=== PATIENT | male | born 1955 | race Caucasian/White ===

== ENCOUNTER 2019-01-30 09:46 | Day surgery (SDC) | payer MEDICARE, OTHER ==
[~2019-01-30] VITALS: Wt 115.0 kg
[~2019-01-30 09:46] MED LIST: Aspir 8181 MG PO; Benazepril HCl40 MG PO; Crutch1 EACH MISC; DIGO.125 PO; ENOX30I; FURO20 PO; Metoprolol Tar100 MG PO; Norco 5-325 Ta1 EACH PO; Pravastatin Sod80 MG PO; WARF2 PO
--- NOTE | 2019-01-30 10:05 | NUR ---
Ambulatory in Day Surgery History, Chart, Medications and Allergies reviewed before start of procedure.Patient States Post-Procedure ride home has been arranged.
--- NOTE | 2019-01-30 10:17 | NUR ---
01/30/19 1017 Chad Dallas PATIENT DETERMINED TO BE ASA APPROPRIATE FOR PROPOFOL SEDATION PRIOR TO START OF PROCEDURE BY . 3-LEAD EKG REVIEWED WITH PHYSICIAN PRIOR TO START OF PROCEDURE.PATIENT CONFIRMS NPO STATUS AND AGREES WITH SCHEDULED PROCEDURE.History, Chart, Medications and Allergies reviewed before start of procedure.MONITOR INTACT WITH CONTINUOUS PULSE OXIMETRY AND INTERMITTENT BP.O2 VIA N/C INTACT THROUGHOUT SEDATION/PROCEDURE.
--- NOTE | 2019-01-30 10:57 | NUR ---
ARRIVED INTO STEP VSS ALERT TALKING DENIES NEED FOR DRINK.
--- NOTE | 2019-01-30 11:20 | NUR ---
DISCHARGED WITH ALL BELONINGS AND DISCHARGE INSTRUCTIONS. History, Chart, Medications and Allergies reviewed before start of procedure.Patient States Post-Procedure ride home has been arranged. Discharged via wheelchair to private car for ride home.
== END 2019-01-30 22:39 | disposition home or self-care (01) ==
LOC: ORSCMMR 09:46 → ORD 10:30 → ORSCMMR 10:30
PROVIDERS: Internal Medicine Gastroenterology
PROC: 0DBN8ZX Excision of Sigmoid Colon, Via Natural or Artificial Opening Endoscopic, Diagnostic (ICD-10-PCS; principal; 2019-01-30 10:30)
PROC: 0DBM8ZX Excision of Descending Colon, Via Natural or Artificial Opening Endoscopic, Diagnostic (ICD-10-PCS; principal; 2019-01-30 10:30)
PROC: 0DBK8ZX Excision of Ascending Colon, Via Natural or Artificial Opening Endoscopic, Diagnostic (ICD-10-PCS; principal; 2019-01-30 10:30)
DX: Z12.11 Encounter for screening for malignant neoplasm of colon (principal); D12.2 Benign neoplasm of ascending colon; D12.4 Benign neoplasm of descending colon; D12.5 Benign neoplasm of sigmoid colon; K57.30 Diverticulosis of large intestine without perforation or abscess without bleeding; Z79.01 Long term (current) use of anticoagulants; Z79.899 Other long term (current) drug therapy
CPT/HCPCS: 88305; J2704; J7120

== ENCOUNTER → 2022-05-25 | Outpatient (CLI) | payer MEDICARE, OTHER ==
[~2022-05-25] MED LIST changes: +AMLO5 PO; +DIGOX250 MCG PO; +FENO160 PO; +FURO40 PO
== END | disposition home or self-care (01) ==
LOC: LAB SHORT 14:07 → PLD 14:07
DX: L82.0 Inflamed seborrheic keratosis (principal)
CPT/HCPCS: 88305

== ENCOUNTER 2022-06-13 07:06 | Day surgery (SDC) | payer MEDICARE, OTHER ==
[~2022-06-13] VITALS: Ht 182.9 cm; Wt 115.0 kg
--- NOTE | 2022-06-13 07:43 | NUR ---
Ambulatory in Day Surgery. Patient States Post-Procedure ride home has been arranged. History, Chart, Medications and Allergies reviewed before start of procedure. Lungs clear T/O to Auscultation.
--- NOTE | 2022-06-13 08:16 | NUR ---
06/13/22 0816 Francis Sheridan HISTORY, CHART, MEDICATIONS AND ALLERGIES REVIEWED BEFORE START OF PROCEDURE. PATIENT CONFIRMS NPO STATUS AND AGREES WITH SCHEDULED PROCEDURE. 3-LEAD EKG REVIEWED WITH PHYSICIAN PRIOR TO START OF PROCEDURE. MONITOR INTACT WITH CONTINUOUS PULSE OXIMETRY,CAPNOGRAPHY, 3-LEAD EKG, INTERMITTENT BP. SUPPLEMENTAL O2 TO BE TITRATED THROUGHOUT PROCEDURE TO MAINTAIN O2 SATURATION ABOVE 90%. PATIENT DETERMINED TO BE ASA APPROPRIATE FOR PROPOFOL SEDATION PRIOR TO START OF PROCEDURE BY DR. SANCHEZ.
--- NOTE | 2022-06-13 09:01 | NUR ---
RECIEVED PATIENT TO STEP VSS AWAKE WANTS TO LEAVE DENIES ANYTHING TO DRINK
--- NOTE | 2022-06-13 09:52 | NUR ---
Discharge instructions reviewed with patient. Patient verbalizes understanding. Copy given to patient to take home. Discharged via wheelchair to private car for ride home.
== END 2022-06-13 23:06 | disposition home or self-care (01) ==
LOC: ORSCMMR 07:06 → ORD 08:00 → ORSCMMR 23:06
PROVIDERS: Internal Medicine Gastroenterology
PROC: 0DBN8ZX Excision of Sigmoid Colon, Via Natural or Artificial Opening Endoscopic, Diagnostic (ICD-10-PCS; principal; 2022-06-13 08:00)
PROC: 0DBM8ZX Excision of Descending Colon, Via Natural or Artificial Opening Endoscopic, Diagnostic (ICD-10-PCS; principal; 2022-06-13 08:00)
PROC: 0DBK8ZX Excision of Ascending Colon, Via Natural or Artificial Opening Endoscopic, Diagnostic (ICD-10-PCS; principal; 2022-06-13 08:00)
DX: Z12.11 Encounter for screening for malignant neoplasm of colon (principal); D12.4 Benign neoplasm of descending colon; D12.5 Benign neoplasm of sigmoid colon; K57.30 Diverticulosis of large intestine without perforation or abscess without bleeding; Z86.010 Personal history of colon polyps; Z95.2 Presence of prosthetic heart valve; I10 Essential (primary) hypertension; E78.00 Pure hypercholesterolemia, unspecified; I48.20 Chronic atrial fibrillation, unspecified; Z79.01 Long term (current) use of anticoagulants; Z79.899 Other long term (current) drug therapy
CPT/HCPCS: 88305; J2704; J7120

== ENCOUNTER 2023-06-12 15:47 | Inpatient (IN) | payer MEDICARE, OTHER ==
[2023-06-12] VITALS (12 sets, daily range): BP systolic 89–115; BP diastolic 61–77
[~2023-06-12] VITALS: Ht 188 cm; Wt 107.5 kg
[2023-06-12 16:56] LABS: BASOPHILS ABSOLUTE AUTO 0.06 K/mm3 (0.00-0.23); BASOPHILS PERCENT AUTO 0 % (0-2); EOSINOPHILS ABSOLUTE AUTO 0.06 K/mm3 (0.00-0.68); EOSINOPHILS PERCENT AUTO 0 % (0-6); Hematocrit 38.7 % (37.0-53.0); Hemoglobin 13.3 g/dL (13.5-17.5); IMMATURE GRAN ABSOLUTE AUTO 0.11 K/mm3 (0.00-0.10); IMMATURE GRAN PERCENT AUTO 1 % (0-1); LYMPHOCYTES PERCENT AUTO 11 % (21-46); MONOCYTES ABSOLUTE AUTO 1.74 K/mm3 (0.16-1.47); MONOCYTES PERCENT AUTO 13 % (4-13); Mean Corpuscular HGB 33.6 pg (26.0-34.0); Mean Corpuscular HGB Conc 34.4 g/dL (31.5-36.5); Mean Corpuscular Volume 98 fL (80-100); Mean Platelet Volume 9.5 fL (9.1-12.4); NEUTROPHILS ABSOLUTE AUTO 10.43 K/mm3 (1.96-9.15); NEUTROPHILS PERCENT AUTO 75 % (41-73); Platelet Count 197 K/mm3 (150-400); RDW Coefficient Variation 13.7 % (11.7-14.2); RDW Standard Deviation 48.8 fL (35.1-46.3); Red Blood Cell Count 3.96 M/mm3 (4.30-5.90)
[2023-06-12 17:04] LABS: Base Excess Venous -4.9 mmol/L; Bicarbonate Venous 21.3 mmol/L (24.0-30.0); PCO2 Venous 29.3 mmHg (38-42); pH Blood Venous 7.43 (7.34-7.37)
[2023-06-12 17:07] LABS: Albumin, Blood 3.2 g/dL (3.4-5.0); Albumin/Globulin Ratio 0.6 (0.8-1.8); Bilirubin, Total 1.8 mg/dL (0.1-1.0); Bun/Creatinine Ratio 19.7 (12.0-20.0); Calcium, Blood 9.5 mg/dL (8.5-10.1); Creatinine, Blood 1.83 mg/dL (0.60-1.20); Potassium, Blood 4.8 mmol/L (3.5-5.5); Total Protein, Blood 8.2 g/dL (6.4-8.2)
[2023-06-12 17:31] LABS: Digoxin (Lanoxin) 1.06 ug/mL (0.80-2.00)
[2023-06-12 17:32] LABS: Influenza A, PCR NEGATIVE (NEGATIVE); Influenza B, PCR NEGATIVE (NEGATIVE); Resp Syncytial Virus, PCR NEGATIVE (NEGATIVE); SARS-Cov-2 (COVID-19) PCR, MMC NEGATIVE (NEGATIVE)
[2023-06-12 17:34] LABS: International Normalized Ratio 3.34; Prothrombin Time Results 32.8 Sec (9.7-11.5)
[2023-06-12] MEDS ORDERED: ROSUVASTATIN CA40 MG PO (17:39)
[2023-06-12] MEDS ORDERED: ACET325 PO (17:41)
--- NOTE | 2023-06-12 22:13 | NUR ---
ASSUMED CARE PT ARRIVED ON UNIT AT 2100. A&O X4; MAP >65; AFIB RATE IN THE 80-90'S; SPO2 >92% ON BIPAP. PT DENIES CP, INCREASED SOB, OR NAUSEA; "I FEEL A WHOLE HELL OF A LOT BETTER THAN WHEN I FIRST CAME IN". DENIES ANXIETY AND IS TOLERATING BIPAP WELL. PT'S AT BEDSIDE.
[2023-06-13] VITALS (43 sets, daily range): BP systolic 80–129; BP diastolic 57–84
[2023-06-13 03:27] LABS: BASOPHILS ABSOLUTE AUTO 0.05 K/mm3 (0.00-0.23); BASOPHILS PERCENT AUTO 1 % (0-2); EOSINOPHILS ABSOLUTE AUTO 0.22 K/mm3 (0.00-0.68); EOSINOPHILS PERCENT AUTO 2 % (0-6); Hematocrit 34.1 % (37.0-53.0); Hemoglobin 11.6 g/dL (13.5-17.5); IMMATURE GRAN ABSOLUTE AUTO 0.06 K/mm3 (0.00-0.10); IMMATURE GRAN PERCENT AUTO 1 % (0-1); LYMPHOCYTES ABSOLUTE AUTO 1.51 K/mm3 (0.84-5.20); LYMPHOCYTES PERCENT AUTO 14 % (21-46); MONOCYTES ABSOLUTE AUTO 1.14 K/mm3 (0.16-1.47); MONOCYTES PERCENT AUTO 11 % (4-13); Mean Corpuscular HGB 33.7 pg (26.0-34.0); Mean Corpuscular Volume 99 fL (80-100); Mean Platelet Volume 9.5 fL (9.1-12.4); NEUTROPHILS ABSOLUTE AUTO 7.48 K/mm3 (1.96-9.15); NEUTROPHILS PERCENT AUTO 72 % (41-73); Platelet Count 157 K/mm3 (150-400); RDW Coefficient Variation 13.7 % (11.7-14.2); RDW Standard Deviation 49.4 fL (35.1-46.3); Red Blood Cell Count 3.44 M/mm3 (4.30-5.90); White Blood Cell Count 10.46 K/mm3 (4.00-11.30)
[2023-06-13 03:50] LABS: International Normalized Ratio 3.32; Prothrombin Time Results 32.6 Sec (9.7-11.5)
[2023-06-13 04:53] LABS: Bun/Creatinine Ratio 21.6 (12.0-20.0); Calcium, Blood 8.3 mg/dL (8.5-10.1); Creatinine, Blood 1.67 mg/dL (0.60-1.20); Magnesium, Blood 2.6 mg/dL (1.6-2.4); Potassium, Blood 4.5 mmol/L (3.5-5.5)
--- NOTE | 2023-06-13 06:09 | NUR ---
SHIFT SUMMARY PT REMAINS A&O X4; SLEPT WELL T/O NIGHT, TOLERATED BIPAP WELL. 08/01/60%. CONTINUES TO DENY CP, SOB, OR NAUSEA. AFB IN THE 80-90'S. MAP >65. NO ACUTE EVENTS OVERNIGHT.
--- NOTE | 2023-06-13 07:29 | NUR ---
ASSUMED CARE: PT ON BIPAP. RT AT BEDSIDE AND CHANGED SETTINGS TO 14/10 AND 55% FIO2. PT IN AFIB AT 110. FRIEND AT BEDSIDE. NO ACUTE NEEDS OR CONCERNS AT THIS TIME.
--- NOTE | 2023-06-13 08:07 | NUR ---
PT TAKEN OFF BIPAP AND PUT ON 6L O2 FOR MED ADMINISTRATION. O2 SATURATION DECREASED TO 79% AFTER A COUPLE OF MINUTES OFF BIPAP. BIPAP RESUMED AND PT RECOVERED AFTER A COUPLE OF MINUTES. FRIEND AT BEDSIDE AT THIS TIME.
--- NOTE | 2023-06-13 11:44 | NUR ---
EXPELLER WORKER AT BEDSIDE
--- NOTE | 2023-06-13 16:30 | NUR ---
RT SWITCHED PT TO AIRVO AT 45L, 55% FIO2. PT TOLERATING WELL AT THIS TIME.
--- NOTE | 2023-06-13 18:31 | NUR ---
SHIFT SUMMARY: PT REMAINS ON AIRVO AT 45L, 55% FIO2. PT WAS ABLE TO TOLERATE CLEAR LIQUID DINNER WITH ONLY ONE INCIDENCE OF DESATURATION THAT LASTED FOR ABOUT 1 MINUTE AND RECOVERED BACK INTO 90S. AFIB AT 108 ON TELE. FRIEND AT BEDSIDE. NO ACUTE NEEDS AT THIS TIME.
--- NOTE | 2023-06-13 19:49 | NUR ---
ASSUMED CARE PT IS A&O X4; SPO2 >92% ON BIPAP; MAP >65; AFIB RATE IN THE 110'S. AT BEDSIDE @ START OF SHIFT. PT DENIES CP, INCREASED SOB, OR NAUSEA. RESTING QUIETLY WATCHING TV.
[2023-06-14] VITALS (17 sets, daily range): BP systolic 108–130; BP diastolic 63–88
[2023-06-14 03:22] LABS: BASOPHILS ABSOLUTE AUTO 0.04 K/mm3 (0.00-0.23); BASOPHILS PERCENT AUTO 1 % (0-2); EOSINOPHILS PERCENT AUTO 4 % (0-6); Hematocrit 32.6 % (37.0-53.0); Hemoglobin 10.8 g/dL (13.5-17.5); IMMATURE GRAN ABSOLUTE AUTO 0.03 K/mm3 (0.00-0.10); IMMATURE GRAN PERCENT AUTO 0 % (0-1); LYMPHOCYTES ABSOLUTE AUTO 1.01 K/mm3 (0.84-5.20); LYMPHOCYTES PERCENT AUTO 14 % (21-46); MONOCYTES ABSOLUTE AUTO 0.86 K/mm3 (0.16-1.47); MONOCYTES PERCENT AUTO 12 % (4-13); Mean Corpuscular HGB 33.4 pg (26.0-34.0); Mean Corpuscular HGB Conc 33.1 g/dL (31.5-36.5); Mean Corpuscular Volume 101 fL (80-100); Mean Platelet Volume 9.7 fL (9.1-12.4); NEUTROPHILS ABSOLUTE AUTO 5.04 K/mm3 (1.96-9.15); NEUTROPHILS PERCENT AUTO 69 % (41-73); Platelet Count 155 K/mm3 (150-400); RDW Coefficient Variation 13.7 % (11.7-14.2); RDW Standard Deviation 50.8 fL (35.1-46.3); Red Blood Cell Count 3.23 M/mm3 (4.30-5.90); White Blood Cell Count 7.28 K/mm3 (4.00-11.30)
[2023-06-14 03:43] LABS: Albumin, Blood 2.4 g/dL (3.4-5.0); Anion Gap 6 mmol/L (6-16); Blood Urea Nitrogen 26 mg/dL (8-24); Bun/Creatinine Ratio 23.4 (12.0-20.0); CO2, Blood 20 mmol/L (21-32); Calcium, Blood 7.8 mg/dL (8.5-10.1); Chloride, Blood 116 mmol/L (98-108); Creatinine, Blood 1.11 mg/dL (0.60-1.20); Glomerular Filtration Rate 71 (60-); Glucose, Blood 108 mg/dL (70-99); Magnesium, Blood 2.6 mg/dL (1.6-2.4); Phosphorus, Blood 3.1 mg/dL (2.5-4.9); Potassium, Blood 4.1 mmol/L (3.5-5.5); Sodium, Blood 142 mmol/L (136-145)
[2023-06-14 03:50] LABS: Base Excess Venous -5.5 mmol/L; Bicarbonate Venous 20.8 mmol/L (24.0-30.0); PCO2 Venous 28.4 mmHg (38-42); pH Blood Venous 7.43 (7.34-7.37)
[2023-06-14 03:50] LABS: Prothrombin Time Results 39.2 Sec (9.7-11.5)
[2023-06-14 03:53] LABS: International Normalized Ratio 4.04
--- NOTE | 2023-06-14 06:27 | NUR ---
SHIFT SUMMARY PT RESTED QUIETLY T/O NIGHT. CONTINUES TO REMAIN A&O X4 AND DENY CP, INCREASED SOB, AND NAUSEA. MAP >65; SPO2 >90% ON BIPAP FOR MOST OF NIGHT; AIRVO THIS MORNING. AFIB RATE IN THE 100-110'S; TRENDING UPWARDS THIS AM. NO ACUTE EVENTS OVERNIGHT.
--- NOTE | 2023-06-14 08:52 | NUR ---
PT IN AFIB RVR WITH RATE 140'S-170. PT IS NOT IN DISTRESS. DENIES CP OR PRESSURE. SWITCHED BACK FROM AIRVO TO BIPAP JUST FOR PRECAUTION. GAVE PT METOPROLOL AND DIGOXIN SCHEDULED DOSES. CALLLED DR. GERARD, NO NEW ORDERS JUST LET METOPROLOL AND DIG TAKE EFFECT.
--- NOTE | 2023-06-14 11:54 | NUR ---
SPOKE WITH DR. GERARD ABOUT HR. HR IS BETTER CONTROLLED NOW IN THE 120'S-130'S BUT IF PT USES URINAL OR EXERTS HIMSELF HIS HR GOES UP TO 140'S-170. NEW ORDER TO START PO CARDIZEM. PT STILL DENIES CP OR PRESSURE. ON BIPAP NOW JUST FOR EXERTION ON HIS HEART.
--- NOTE | 2023-06-14 12:09 | NUR ---
PT BEING TRANSFERED TO PCU 20. RT ACCOMPANIES D/T BIPAP. NO SIGN OF DISTRESS. REPORT GIVEN TO RAIN FRANCOIS.
--- NOTE | 2023-06-14 15:01 | NUR ---
Pt was able to take a short break from the bipap to drink some orange juice and water, while on hi flow nasal cannula. He is back on the bipap now, still 60% fiO2. RR 30/min. He appears comfortable, non anxious, and nods when asked if he is doing ok. His heart rate is 95-105 at this time.
--- NOTE | 2023-06-14 17:49 | NUR ---
Eating dinner while on the AirVo, needing 70% FiO2 to keep spo2 88%. Heart rate 120-130 while eating, up to 150 briefly while using urinal in bed.
--- NOTE | 2023-06-14 19:30 | NUR ---
ASSUMPTION OF CARE THIS RN ASSUMED CARE OF PATIENT AT 1900, REPORT TAKEN FROM RAIN FRANCOIS. PT ALERT AND ORIENTED X4. ON AIRVO AT 45L AND 70% O2 AT TIME OF SHIFT CHANGE. THIS RN ASSISTED WITH BED BATH WITH AIDE AFTER SHIFT CHANGE. PT'S O2 INCREASED TO 80% WITH BED BATH D/T DESATTING WITH ACTIVITY TO THE 80'S. BP STABLE. RR 28-32. AFIB WITH HR 100-110'S AT REST, INCREASING TO 120-130'S WITH ACTIVITY; PVC'S NOTED. AFEBRILE. BED IN LOWEST POSITION AND CALL LIGHT WITHIN REACH.
[2023-06-15 04:00] VITALS: BP 123/72
[2023-06-15 04:17] LABS: BASOPHILS ABSOLUTE AUTO 0.03 K/mm3 (0.00-0.23); BASOPHILS PERCENT AUTO 0 % (0-2); EOSINOPHILS ABSOLUTE AUTO 0.12 K/mm3 (0.00-0.68); EOSINOPHILS PERCENT AUTO 2 % (0-6); Hematocrit 32.3 % (37.0-53.0); Hemoglobin 10.8 g/dL (13.5-17.5); IMMATURE GRAN ABSOLUTE AUTO 0.05 K/mm3 (0.00-0.10); IMMATURE GRAN PERCENT AUTO 1 % (0-1); LYMPHOCYTES ABSOLUTE AUTO 0.61 K/mm3 (0.84-5.20); LYMPHOCYTES PERCENT AUTO 8 % (21-46); MONOCYTES ABSOLUTE AUTO 0.64 K/mm3 (0.16-1.47); MONOCYTES PERCENT AUTO 9 % (4-13); Mean Corpuscular HGB 33.4 pg (26.0-34.0); Mean Corpuscular HGB Conc 33.4 g/dL (31.5-36.5); Mean Corpuscular Volume 100 fL (80-100); Mean Platelet Volume 9.6 fL (9.1-12.4); NEUTROPHILS ABSOLUTE AUTO 6.01 K/mm3 (1.96-9.15); NEUTROPHILS PERCENT AUTO 81 % (41-73); Platelet Count 150 K/mm3 (150-400); RDW Coefficient Variation 13.4 % (11.7-14.2); RDW Standard Deviation 49.2 fL (35.1-46.3); Red Blood Cell Count 3.23 M/mm3 (4.30-5.90); White Blood Cell Count 7.46 K/mm3 (4.00-11.30)
--- NOTE | 2023-06-15 04:45 | NUR ---
SHIFT SUMMARY NO ACUTE CHANGES OVERNIGHT. PT WORE BIPAP FOR THE MAJORITY OF THIS SHIFT. PT PLACED ON CPAP BY RT LUIS THIS AM AROUND 0300. RR CONTINUES TO BE 28-32. PT DESATS AND BECOMES MORE TACHYPNEIC WITH EXERTION OR SPEAKING. BP STABLE. AFIB WITH HR 100-110'S WHILE AT REST; HR INCREASING TO 120-140'S WITH ACTIVITY. PT USING URINAL INDEPENDENTLY IN BED. PT REPOSITIONING SELF INDEPENDENTLY; ASSISTING WITH BOOSTING AND PILLOWS NEEDED. BED IN LOWEST POSITION AND CALL LIGHT WITHIN REACH. THIS RN WILL REPORT TO ONCOMING RN.
[2023-06-15 04:49] LABS: International Normalized Ratio 3.99; Prothrombin Time Results 38.7 Sec (9.7-11.5)
[2023-06-15 04:56] LABS: Albumin, Blood 2.5 g/dL (3.4-5.0); Anion Gap 9 mmol/L (6-16); Blood Urea Nitrogen 19 mg/dL (8-24); Bun/Creatinine Ratio 16.5 (12.0-20.0); CO2, Blood 18 mmol/L (21-32); Calcium, Blood 8.2 mg/dL (8.5-10.1); Chloride, Blood 113 mmol/L (98-108); Creatinine, Blood 1.15 mg/dL (0.60-1.20); Glomerular Filtration Rate 68 (60-); Glucose, Blood 121 mg/dL (70-99); Phosphorus, Blood 2.8 mg/dL (2.5-4.9); Potassium, Blood 4.2 mmol/L (3.5-5.5); Sodium, Blood 140 mmol/L (136-145)
[2023-06-15 07:29] VITALS: BP 128/87
--- NOTE | 2023-06-15 08:47 | NUR ---
UPDATE: PT ON CPAP BEGINNING OF SHIFT, SETTINGS 10 65% FIO2. LUNG SOUNDS WITH WHEEZES THROUGHOUT. MD ON UNIT THIS AM, ORDERS FOR CHEST XRAY WITH CONTRAST AND DOSE OF DIURETIC, SEE EMAR. ATTEMPTED TO SWITCH PT TO AIRVO, UNABLE TO MAINTAIN SPO2 >80%. HR INCREASED TO 140-150'S. PT SWITCH BACK TO CPAP SETTING 10 70%. CURRENTLY RESTING IN BED.
--- NOTE | 2023-06-15 10:00 | NUR ---
UPDATE: PT BACK FROM CT, TOLERATED WELL.
[2023-06-15 11:48] VITALS: BP 104/76
[2023-06-15 15:15] VITALS: BP 134/72
--- NOTE | 2023-06-15 17:22 | NUR ---
SHIFT SUMMARY: PT ALERT AND ORIENTED X4, ABLE TO FOLLOW COMMANDS AND MAKE NEEDS KNOWN. BP STABLE, HR REMAINS AFIB 110-130'S, AFEBRILE. PT REMAINED ON CPAP MAJORITY OF THE DAY. ABLE TO BE SWITCHED TO AIRVO 50L 75% FIO2 FOR APPROX 1 HR. PT REQUESTED TO BE PLACED BACK ON MASK. CHEST XRAY COMPLETED THIS AM. AT BEDSIDE AND UPDATED ON PT CARE. PT ABLE TO VOID IND IN URINAL, NO BM. REPOS Q2 TO MAINTAIN SKIN INTEGRITY. BED IN LOW, CALL LIGHT IN REACH, WILL REPORT TO ONCOMING RN.
[2023-06-15 19:21] VITALS: BP 115/70
--- NOTE | 2023-06-15 20:51 | NUR ---
ASSUMPTION OF CARE THIS RN ASSUMED CARE OF PATIENT AT 1900. PT A&OX4. DIAPHORETIC. ON CPAP WITH 80% O2. PT WITH RR OF 32-36. BP STABLE. AFIB WITH HR 90-110'S. DENIES CHEST PAIN/PRESSURE. PT WAS BRIEFLY TAKEN OFF OF CPAP AND GIVEN EVENING MEDS AND WATER. AFTER APPROXIMATELY 10 SECONDS PT'S SPO2 WAS 83-85%. HR INCREASED TO 120'S. PT FINISHED WATER AND MEDS AND WAS PLACED BACK ON CPAP. SPO2 QUICKLY RECOVERED. AFEBRILE. USING URINAL INDEPENDENTLY. CALLING APPROPRIATELY. BED IN LOWEST POSITION AND CALL LIGHT WITHIN REACH.
[2023-06-15 23:20] VITALS: BP 104/64
[2023-06-16 03:21] VITALS: BP 105/72
[2023-06-16 03:48] LABS: BASOPHILS ABSOLUTE AUTO 0.01 K/mm3 (0.00-0.23); BASOPHILS PERCENT AUTO 0 % (0-2); EOSINOPHILS PERCENT AUTO 0 % (0-6); Hematocrit 31.8 % (37.0-53.0); Hemoglobin 10.6 g/dL (13.5-17.5); IMMATURE GRAN ABSOLUTE AUTO 0.02 K/mm3 (0.00-0.10); IMMATURE GRAN PERCENT AUTO 0 % (0-1); LYMPHOCYTES ABSOLUTE AUTO 0.65 K/mm3 (0.84-5.20); LYMPHOCYTES PERCENT AUTO 11 % (21-46); MONOCYTES ABSOLUTE AUTO 0.69 K/mm3 (0.16-1.47); MONOCYTES PERCENT AUTO 11 % (4-13); Mean Corpuscular HGB 32.8 pg (26.0-34.0); Mean Corpuscular HGB Conc 33.3 g/dL (31.5-36.5); Mean Corpuscular Volume 99 fL (80-100); Mean Platelet Volume 9.8 fL (9.1-12.4); NEUTROPHILS ABSOLUTE AUTO 4.66 K/mm3 (1.96-9.15); NEUTROPHILS PERCENT AUTO 77 % (41-73); Platelet Count 147 K/mm3 (150-400); RDW Coefficient Variation 13.1 % (11.7-14.2); RDW Standard Deviation 47.1 fL (35.1-46.3); Red Blood Cell Count 3.23 M/mm3 (4.30-5.90); White Blood Cell Count 6.03 K/mm3 (4.00-11.30)
[2023-06-16 04:05] LABS: Albumin, Blood 2.5 g/dL (3.4-5.0); Anion Gap 7 mmol/L (6-16); Blood Urea Nitrogen 23 mg/dL (8-24); Bun/Creatinine Ratio 18.9 (12.0-20.0); CO2, Blood 23 mmol/L (21-32); Calcium, Blood 8.6 mg/dL (8.5-10.1); Chloride, Blood 109 mmol/L (98-108); Creatinine, Blood 1.22 mg/dL (0.60-1.20); Glomerular Filtration Rate 64 (60-); Glucose, Blood 132 mg/dL (70-99); Phosphorus, Blood 3.4 mg/dL (2.5-4.9); Potassium, Blood 4.3 mmol/L (3.5-5.5); Sodium, Blood 139 mmol/L (136-145)
[2023-06-16 04:13] LABS: Prothrombin Time Results 48.3 Sec (9.7-11.5)
--- NOTE | 2023-06-16 04:33 | NUR ---
SHIFT SUMMARY NO ACUTE CHANGES OVERNIGHT. CONTINUES TO BE DEPENDENT ON CPAP WITH 60-65% FIO2. RR CONTINUES TO BE 28-30'S. DYSPNEIC WITH ACTIVITY. BP STABLE. AFIB WITH HR 80-100'S AT REST. HR INCREASES TO 120-140'S WITH ACTIVITY. SEE PREVIOUS NOTE. BED IN LOWEST POSITION. CALL LIGHT WITHIN REACH. THIS RN WILL REPORT TO ONCOMING DAYSHIFT RN.
[2023-06-16 05:59] LABS: International Normalized Ratio 5.04
[2023-06-16 09:12] VITALS: BP 109/75
[2023-06-16 11:07] VITALS: BP 111/76
[2023-06-16 15:00] VITALS: BP 135/81
--- NOTE | 2023-06-16 17:35 | NUR ---
SHIFT SUMMARY: PT REMAINS ALERT AND ORIENTED X4, ABLE TO FOLLOW COMMANDS AND MAKE NEEDS KNOWN. BP STABLE, HR AFIB 90-100'S, AFERBILE. PT REMAINED ON CPAP MAOJRITY OF THE DAY. ABLE TO TRANSITION TO AIRVO FOR MEALS, QUICKLY DEATS WITH ANY MOVEMENT. LUNG SOUNDS COARSE, PT STATES IMPROVEMENT WITH BREATHING FROM YESTERDAY. MD AT BEDSIDE THIS AM, ORDERS FOR INCREASE STERIOD. PT ABLE TU USE URINAL IND AT BEDSIDE, ADEQUATE OUTPUT. NO BM. REMAINED AT BESIDE THROUGHOUT THIS SHIFT AND UPDATED ON PT CARE. PT ABLE TO REPOS IND IN BED. BED IN LOW, CALL LIGHT INR EACH, WILL REPORT TO ONCOMING RN.
[2023-06-16 19:34] VITALS: BP 120/74
[2023-06-16 23:22] VITALS: BP 133/106
[2023-06-17 03:58] VITALS: BP 114/81
[2023-06-17 04:36] LABS: BASOPHILS ABSOLUTE AUTO 0.01 K/mm3 (0.00-0.23); BASOPHILS PERCENT AUTO 0 % (0-2); EOSINOPHILS PERCENT AUTO 0 % (0-6); Hematocrit 32.7 % (37.0-53.0); Hemoglobin 10.8 g/dL (13.5-17.5); IMMATURE GRAN ABSOLUTE AUTO 0.04 K/mm3 (0.00-0.10); IMMATURE GRAN PERCENT AUTO 1 % (0-1); LYMPHOCYTES ABSOLUTE AUTO 0.64 K/mm3 (0.84-5.20); LYMPHOCYTES PERCENT AUTO 9 % (21-46); MONOCYTES ABSOLUTE AUTO 0.69 K/mm3 (0.16-1.47); MONOCYTES PERCENT AUTO 9 % (4-13); Mean Corpuscular HGB 32.7 pg (26.0-34.0); Mean Corpuscular Volume 99 fL (80-100); NEUTROPHILS ABSOLUTE AUTO 6.03 K/mm3 (1.96-9.15); NEUTROPHILS PERCENT AUTO 82 % (41-73); Platelet Count 156 K/mm3 (150-400); RDW Coefficient Variation 12.8 % (11.7-14.2); White Blood Cell Count 7.41 K/mm3 (4.00-11.30)
[2023-06-17 05:03] LABS: Albumin, Blood 2.4 g/dL (3.4-5.0); Anion Gap 4 mmol/L (6-16); Blood Urea Nitrogen 28 mg/dL (8-24); CO2, Blood 24 mmol/L (21-32); Calcium, Blood 8.7 mg/dL (8.5-10.1); Chloride, Blood 109 mmol/L (98-108); Creatinine, Blood 1.12 mg/dL (0.60-1.20); Glomerular Filtration Rate 71 (60-); Glucose, Blood 140 mg/dL (70-99); Phosphorus, Blood 3.5 mg/dL (2.5-4.9); Potassium, Blood 4.4 mmol/L (3.5-5.5); Sodium, Blood 137 mmol/L (136-145)
--- NOTE | 2023-06-17 05:03 | NUR ---
SHIFT SUMMARY THIS RN ASSUMED CARE OF PATIENT AT 1900. NO ACUTE CHANGES OVERNIGHT. PT ON AIRVO AT BEGINNING OF SHIFT WITH SETTINGS OF 50L AND 100% FIO2. PT PLACED ON CPAP FOR NOC WITH 70% FIO2. PT A&O X4. ABLE TO MAKE NEEDS KNOWN. REPOSITIONING WITH MINIMAL ASSISTANCE. PT CONTINUES TO DESAT EASILY WITH ACTIVITY. GEL PAD ON BRIDGE OF NOSE FOR REDNESS. AFIB WITH HR 90-100'S. BP STABLE. AFEBRILE. SPO2 >92%. BED IN LOWEST POSITION AND CALL LIGHT WITHIN REACH. THIS RN WILL REPORT TO ONCOMING DAYSHIFT RN.
[2023-06-17 05:04] LABS: Prothrombin Time Results 68.5 Sec (9.7-11.5)
[2023-06-17 05:15] LABS: International Normalized Ratio 7.3
[2023-06-17 07:14] VITALS: BP 112/72
[2023-06-17 11:56] VITALS: BP 129/78
[2023-06-17 15:16] VITALS: BP 119/83
--- NOTE | 2023-06-17 16:24 | NUR ---
PHYSICIAN CONTACT THIS RN NOTIFIED BY TELEMETRY OF HR INCREASES UP TO 150'S. PT HAS BEEN 90-110'S PREVIOUSLY, NOW 130-150'S AT REST. PT DENIES CHEST PAIN/PRESSURE. BURDEN NOTIFIED OF THIS. MD STATES HE WILL EVALUATE MEDS AND COME TO BEDSIDE TO ASSESS. NO ORDERS RECEIVED AT TIME OF CONTACT.
--- NOTE | 2023-06-17 17:29 | NUR ---
END OF SHIFT NOTE: NO ACUTE CHANGES THIS SHIFT. PT A&OX4, ABLE TO CALL APPROPRIATELY AND MAKE NEEDS KNOWN TO STAFF. HR 90-110'S THIS SHIFT W/ INCREASES UP TO 150'S THIS AFTERNOON; MD NOTIFIED, SEE PREVIOUS NOTE. SBP 110-120'S, DENIES CHEST PAIN/PRESSURE. SPO2 >90% ON AIRVO W/ SETTINGS OF 60L AND 100% FIO2. BREAKS W/ CPAP NEEDED, NOSE GEL PAD IN PLACE FOR REDNESS. PT UP TO CHAIR THIS AM, REMAINED IN CHAIR FOR ENTIRETY OF SHIFT. DESATS W/ EXERTION AND TRANSITION BETWEEN CPAP AND AIRVO. BED BATH DONE THIS SHIFT, 1 LIQUID BM. ABLE TO VOID IN URINAL INDEPENDENTLY. REPOSITIONS SELF W/ MINIMAL ASSISTANCE, SBA FROM BED TO CHAIR. TOLERATING DIET WELL. EXTREMITIES ELEVATED W/ PILLOWS WHILE IN CHAIR. NO OTHER EVENTS. CALL LIGHT WITHIN REACH. WILL REPORT TO ONCDULCE MARIA CAPONE RN.
[2023-06-17 19:40] VITALS: BP 137/77
[2023-06-17 23:33] VITALS: BP 122/75
[2023-06-18 03:40] LABS: BASOPHILS ABSOLUTE AUTO 0.01 K/mm3 (0.00-0.23); BASOPHILS PERCENT AUTO 0 % (0-2); EOSINOPHILS ABSOLUTE AUTO 0.01 K/mm3 (0.00-0.68); EOSINOPHILS PERCENT AUTO 0 % (0-6); Hematocrit 32.9 % (37.0-53.0); IMMATURE GRAN ABSOLUTE AUTO 0.04 K/mm3 (0.00-0.10); IMMATURE GRAN PERCENT AUTO 1 % (0-1); LYMPHOCYTES ABSOLUTE AUTO 0.88 K/mm3 (0.84-5.20); LYMPHOCYTES PERCENT AUTO 10 % (21-46); MONOCYTES ABSOLUTE AUTO 0.83 K/mm3 (0.16-1.47); MONOCYTES PERCENT AUTO 10 % (4-13); Mean Corpuscular HGB 32.8 pg (26.0-34.0); Mean Corpuscular HGB Conc 33.4 g/dL (31.5-36.5); Mean Corpuscular Volume 98 fL (80-100); Mean Platelet Volume 9.9 fL (9.1-12.4); NEUTROPHILS ABSOLUTE AUTO 6.69 K/mm3 (1.96-9.15); NEUTROPHILS PERCENT AUTO 79 % (41-73); Platelet Count 162 K/mm3 (150-400); RDW Standard Deviation 46.7 fL (35.1-46.3); Red Blood Cell Count 3.35 M/mm3 (4.30-5.90); White Blood Cell Count 8.46 K/mm3 (4.00-11.30)
[2023-06-18 04:01] LABS: Albumin, Blood 2.6 g/dL (3.4-5.0); Anion Gap 6 mmol/L (6-16); Blood Urea Nitrogen 32 mg/dL (8-24); Bun/Creatinine Ratio 31.4 (12.0-20.0); CO2, Blood 24 mmol/L (21-32); Calcium, Blood 9.1 mg/dL (8.5-10.1); Chloride, Blood 108 mmol/L (98-108); Creatinine, Blood 1.02 mg/dL (0.60-1.20); Glomerular Filtration Rate 79 (60-); Glucose, Blood 128 mg/dL (70-99); Magnesium, Blood 2.5 mg/dL (1.6-2.4); Phosphorus, Blood 4.2 mg/dL (2.5-4.9); Potassium, Blood 4.4 mmol/L (3.5-5.5); Sodium, Blood 138 mmol/L (136-145)
[2023-06-18 04:03] LABS: Prothrombin Time Results 49.8 Sec (9.7-11.5)
[2023-06-18 04:29] LABS: International Normalized Ratio 5.21
[2023-06-18 05:02] VITALS: BP 112/66
--- NOTE | 2023-06-18 06:31 | NUR ---
SHIFT SUMMARY PATIENT ALERT AND ORIENTED, ABLE TO MAKE NEEDS KNOWN TO STAFF. BP STABLE, TELE READING AFIB 80-100s, ALTERNATING BETWEEN AIRVO AND CPAP DURING THE NIGHT WITH SPO2 >93%, PATIENT CONTINUES TO BE SLIGHTLY TACHYPNEIC WITH RR MID 20s. PATIENT SITTING UP IN CHAIR FOR ENTIRE SHIFT, ADJUSTING SELF. USING URINAL INEPENDENTLY, ADEQUATE OUTPUT. NO OTHER CHANGES THIS SHIFT, WILL REPORT TO DAY SHIFT RN.
[2023-06-18 07:04] VITALS: BP 127/84
[2023-06-18 11:05] VITALS: BP 133/77
[2023-06-18 16:06] VITALS: BP 117/76
--- NOTE | 2023-06-18 18:13 | NUR ---
END OF SHIFT NOTE PT A&OX4, ABLE TO CALL APPROPRIATELY AND MAKE NEEDS KNOWN TO STAFF. HR 90-110'S, OCCASIONAL INCREASES UP TO 150; MEDICATING PER EMAR. SBP 110-130'S, DENIES CHEST PAIN/PRESSURE. SPO2 >88% ON CPAP 10L AT 100% FIO2. PT ABLE TO TOLERATE AIRVO FOR SHORT INCREMENTS OF TIME, PLACED BACK ON CPAP DUE TO SPO2 HOLDING AT 83-86% AND INCREASED RR. PT REPORTS FEELING MORE SOB TODAY COMPARED TO YESTERDAY. UP IN CHAIR ENTIRE SHIFT, REPOSITIONED NEEDED. USING URINAL INDEPENDENTLY, NO BM'S THIS SHIFT. MINIMAL PO INTAKE DUE TO INCREASED SOB. EXTREMITIES ELEVATED ON PILLOWS. NO OTHER EVENTS THIS SHIFT. CALL LIGHT WITHIN REACH. WILL REPORT TO ONCOMING ESTELITA RN.
[2023-06-18 19:41] VITALS: BP 119/93
[2023-06-18 20:58] LABS: Influenza A, PCR NEGATIVE (NEGATIVE); Influenza B, PCR NEGATIVE (NEGATIVE); Resp Syncytial Virus, PCR NEGATIVE (NEGATIVE); SARS-Cov-2 (COVID-19) PCR, MMC NEGATIVE (NEGATIVE)
[2023-06-18 22:59] VITALS: BP 107/73
[2023-06-19 03:26] VITALS: BP 126/86
[2023-06-19 03:58] LABS: BASOPHILS ABSOLUTE AUTO 0.01 K/mm3 (0.00-0.23); BASOPHILS PERCENT AUTO 0 % (0-2); EOSINOPHILS ABSOLUTE AUTO 0.01 K/mm3 (0.00-0.68); EOSINOPHILS PERCENT AUTO 0 % (0-6); Hematocrit 32.2 % (37.0-53.0); Hemoglobin 10.7 g/dL (13.5-17.5); IMMATURE GRAN ABSOLUTE AUTO 0.05 K/mm3 (0.00-0.10); IMMATURE GRAN PERCENT AUTO 1 % (0-1); LYMPHOCYTES ABSOLUTE AUTO 0.76 K/mm3 (0.84-5.20); LYMPHOCYTES PERCENT AUTO 10 % (21-46); MONOCYTES ABSOLUTE AUTO 0.64 K/mm3 (0.16-1.47); MONOCYTES PERCENT AUTO 8 % (4-13); Mean Corpuscular HGB 32.4 pg (26.0-34.0); Mean Corpuscular HGB Conc 33.2 g/dL (31.5-36.5); Mean Corpuscular Volume 98 fL (80-100); NEUTROPHILS ABSOLUTE AUTO 6.44 K/mm3 (1.96-9.15); NEUTROPHILS PERCENT AUTO 82 % (41-73); Platelet Count 172 K/mm3 (150-400); RDW Standard Deviation 46.5 fL (35.1-46.3); White Blood Cell Count 7.91 K/mm3 (4.00-11.30)
[2023-06-19 04:22] LABS: Calcium, Blood 8.8 mg/dL (8.5-10.1); Creatinine, Blood 1.03 mg/dL (0.60-1.20); Potassium, Blood 4.5 mmol/L (3.5-5.5)
--- NOTE | 2023-06-19 05:21 | NUR ---
SHIFT SUMMARY PT A&Ox4, CALLS AND COMMUNICATES NEEDS APPROPRIATELY. BP STABLE, AFIB 80-100's, DENIES CP/PRESSURE. PT WITH 2 6-7 BEAT RUNS OF V-TACH THIS SHIFT, ASYMPTOMATIC. SpO2> 92% CPAP 10 100% FiO2, ELEVATED RR IN 30's, REPORTS INTERMITTENT SOB. PT REFUSED TAKING A BREAK FROM CPAP, PROVIDED ORAL CARE AND REPLACED PADDING ON BRIDGE OF NOSE. PT REFUSED TO GET OUT OF CHAIR, REPOSITIONING WAS PROVIDED TO STAFFS BEST ABILITY, EGG CRATE UNDER PT. D/T PT NOT GETTING OUT OF CHAIR, THIS RN WAS UNABLE TO WEIGHT PT. CONTINENT OF URINE, USES URINAL IND, NO BM THIS SHIFT. NO OTHER EVENTS, WILL REPORT TO ONCOMING RN.
[2023-06-19 06:57] VITALS: BP 129/81
--- NOTE | 2023-06-19 07:24 | NUR ---
Received in room report from Navneet FRANCOIS. Patient awake and sitting up in recliner for easier breathoing and comfort. He is alert and oriented and is able to communicate his needs. He is on CPAP 10 90% and sats 97%. SOB with any exertion. He has 20ga IV in RW and is flushed and SL'd. He has urinal at bedside and is independnet with use. Patient deinies any current needs.
[2023-06-19 08:15] LABS: International Normalized Ratio 3.84; Prothrombin Time Results 37.4 Sec (9.7-11.5)
--- NOTE | 2023-06-19 11:30 | NUR ---
patient has been tresting in chair and self podsitioning for comfort. He remains on CPAP at 10 FiO2 90% and sats >95%. He was on airvo for breakfast and shortly after done sats decreased and requested to be back on CPAP. Patient uses urinal appropriately and has had 700 mls out. He deines the need for anything. Dr Rangel put in lasis orders and pulm. consult.
--- NOTE | 2023-06-19 15:30 | NUR ---
was called and arrived to be involved in pulm. consult and Dr Arceo arrived at 1230 and spoke with them for over an hour. When done was tearful, but stated well informed, patient somewhat quiet. He did not want li=unch as he felt he could not be of CPAP. He was able to take meds and do swab for resp panel. Patient continues on same settings of CPAP and sats >94%. has gone back to work and patient tolerating care well. He denies any current needs.
[2023-06-19 16:16] LABS: Adenovirus Not Detected (NOT DETECT); Bordetella pertussis Not Detected (NOT DETECT); Chlamydophila pneumoniae Not Detected (NOT DETECT); Coronavirus 229E Not Detected (NOT DETECT); Coronavirus HKU1 Not Detected (NOT DETECT); Coronavirus NL63 Not Detected (NOT DETECT); Coronavirus OC43 Not Detected (NOT DETECT); Human Metapneumovirus Not Detected (NOT DETECT); Human Rhinovirus/Enterovirus Not Detected (NOT DETECT); Influenza A/2009-H1 Not Detected (NOT DETECT); Influenza A/H1 Not Detected (NOT DETECT); Influenza A/H3 Not Detected (NOT DETECT); Influenza B Not Detected (NOT DETECT); Mycoplasma pneumoniae Not Detected (NOT DETECT); Parainfluenza Virus 1 Not Detected (NOT DETECT); Parainfluenza Virus 2 Not Detected (NOT DETECT); Parainfluenza Virus 3 Not Detected (NOT DETECT); Parainfluenza Virus 4 Not Detected (NOT DETECT); Respiratory Syncytial Virus Not Detected (NOT DETECT); SARS-Cov-2 (COVID-19), BioFire Not Detected (NOT DETECT)
[2023-06-19 17:25] VITALS: BP 113/77
--- NOTE | 2023-06-19 18:33 | NUR ---
Patient remains in recliner and self positions for comfort. He remains on CPAP at 10 and 90% FiO2 and sats >94%. he is alert and oriented and is able to communicate his needs. he has urinal on table and uses independently. He had me hold dinner and he is currently worried about sats dropping while he eats and will try later. He is MAEW but weak. He has 20ga IV to RW and is flushed and SL'd. He has tolerated short period with CPAP off to take meds with sips of water. Patient denies any current needs
[2023-06-19 19:35] VITALS: BP 121/81
[2023-06-20] VITALS (33 sets, daily range): BP systolic 112–137; BP diastolic 69–109
[2023-06-20 03:44] LABS: BASOPHILS ABSOLUTE AUTO 0.01 K/mm3 (0.00-0.23); BASOPHILS PERCENT AUTO 0 % (0-2); EOSINOPHILS ABSOLUTE AUTO 0.02 K/mm3 (0.00-0.68); EOSINOPHILS PERCENT AUTO 0 % (0-6); Hemoglobin 11.5 g/dL (13.5-17.5); IMMATURE GRAN ABSOLUTE AUTO 0.05 K/mm3 (0.00-0.10); IMMATURE GRAN PERCENT AUTO 1 % (0-1); LYMPHOCYTES ABSOLUTE AUTO 0.61 K/mm3 (0.84-5.20); LYMPHOCYTES PERCENT AUTO 6 % (21-46); MONOCYTES ABSOLUTE AUTO 0.56 K/mm3 (0.16-1.47); MONOCYTES PERCENT AUTO 6 % (4-13); Mean Corpuscular HGB 33.2 pg (26.0-34.0); Mean Corpuscular HGB Conc 34.8 g/dL (31.5-36.5); Mean Corpuscular Volume 95 fL (80-100); Mean Platelet Volume 9.9 fL (9.1-12.4); NEUTROPHILS ABSOLUTE AUTO 8.64 K/mm3 (1.96-9.15); NEUTROPHILS PERCENT AUTO 87 % (41-73); Platelet Count 195 K/mm3 (150-400); RDW Coefficient Variation 12.8 % (11.7-14.2); RDW Standard Deviation 44.8 fL (35.1-46.3); Red Blood Cell Count 3.46 M/mm3 (4.30-5.90); White Blood Cell Count 9.89 K/mm3 (4.00-11.30)
[2023-06-20 04:05] LABS: International Normalized Ratio 3.65; Prothrombin Time Results 35.6 Sec (9.7-11.5)
[2023-06-20 04:15] LABS: Albumin, Blood 2.5 g/dL (3.4-5.0); Albumin/Globulin Ratio 0.5 (0.8-1.8); Bilirubin, Total 0.7 mg/dL (0.1-1.0); Bun/Creatinine Ratio 39.2 (12.0-20.0); Calcium, Blood 9.2 mg/dL (8.5-10.1); Creatinine, Blood 1.02 mg/dL (0.60-1.20); Globulin, Blood 4.7 g/dL (2.2-4.0); Potassium, Blood 4.4 mmol/L (3.5-5.5); Total Protein, Blood 7.2 g/dL (6.4-8.2)
--- NOTE | 2023-06-20 05:33 | NUR ---
SHIFT SUMMARY PT A&Ox4, CALLS AND COMMUNICATES NEEDS APPROPRIATELY. BP STABLE, AFIB 80-100's 130's WITH ACTIVITY, DENIES CP/PRESSURE. SpO2> 92% CPAP 10 100% FiO2, ELEVATED RR IN 30's, REPORTS INTERMITTENT SOB. DESATURATES TO 70-80's WITH ACTIVITY AND WHEN ON AIRVO 60L 100% FiO2. PROVIDED ORAL CARE AND REPLACED PADDING ON BRIDGE OF NOSE. PT REFUSED TO GET OUT OF CHAIR, REPOSITIONING WAS PROVIDED TO STAFFS BEST ABILITY, EGG CRATE UNDER PT. D/T PT NOT GETTING OUT OF CHAIR, THIS RN WAS UNABLE TO WEIGHT PT. CONTINENT OF URINE, USES URINAL IND, NO BM THIS SHIFT. NO OTHER EVENTS, WILL REPORT TO ONCOMING RN.
--- NOTE | 2023-06-20 14:40 | NUR ---
PT NOTE: PT UNABLE TO TOLERATE BEING ON AIRVO FOR TOO LONG MAXED OUT TO 60L 100% STILL DESATS TO 80% REFUSED LUNCH TRAY OFFERED ENSURE CONSUMED 100% WAS ONLY ON AIRVO FOR 10 MINS EVEN WITH CPAP 10 100% DESATS TO 80% WITH EXERTION, RR RANGING 30-40'S HRR AFIB 110-140'S, SBP 120'S, AFEBRILE. DR MCCARTY TALKING TO THE PT AND AT THE BEDSIDE AT THIS TIME TO DISCUSSS PLANS. TO TRANSFER TO ICU POSSIBLY LATER TODAY TO MONITOR CLOSELY FOR POSS INTUBATION. WELCOME WAGON HOSTESS IN ICU AWARE OF THE PT SITUATION.
--- NOTE | 2023-06-20 17:12 | NUR ---
PT WAS GIVEN ATARAX X1 FOR ANXIETY AFTER DR MCCARTY SPOKE WITH THE PT, PT'S HRR WAS UP TO 130-150'S, RR ABOVE 40'S. AND WAS EFFECTIVE. PT TRANSFERRED TO ICU 12 REPORT GIVEN TO EVA FRANCOIS, ALL BELONGINGS SENT WITH THE PT, CARMELITA CALLED AND MADE AWARE OF THE TRANSFER.
--- NOTE | 2023-06-20 19:23 | NUR ---
ASSUMPTION OF CARE/ SHIFT SUMMARY PATIENT ARRIVED FROM PCU 20 AT 1657. PATIENT ALERT AND ORIENTED X 4, AFEBRILE. PATIENT HAS HEARING AIDES IN. PATIENT HAS NO COMPLAINTS OF PAIN OR DISCOMFORT. PATIENT ON CPAP OF 12, 100% FIO2. LUNGS COARSE AND WHEEZY. PATIENT STATES HE COUGHS PHLEGM UP OCCASIONALLY BUT SWALLOWS IT. PATIENT IN A.FIB, HEART IN THE 100S. BP STABLE. DOBHOFF INSERTED AT 65 CM; APPROVED TO USE FOR TUBE FEEDING. LAST BM ON 06/19. PATIENT VOIDED 325 MLS INTO URINAL THIS SHIFT. AT BEDSIDE. PATIENT ORIENTED TO UNIT, ROOM AND CALL SYSTEM. BED LOW AND CALL LIGHT IN REACH. REPORT GIVEN TO ASSUMING INTERMODAL CUSTOMER SERVICE NURSE.
--- NOTE | 2023-06-20 22:31 | NUR ---
ASSUMED CARE CARE WAS ASSUMED OF PT AT 1900, REPORT GIVEN BY EVA FRANCOIS. PT A/O X4, ABLE TO MAKE NEEDS KNOWN AND ANSWER QUESTIONS APPROPRIATELY. PT STATING HE DID NOT HAVE ANXIETY AT SHIFT CHANGE. PT ON CPAP 12/100%, TOLERATING WELL. O2 SATS > 90%. CARDIAC MONITORING REFLECTS AFIB, HR 110s-130s. SBP 120s. TF STARTED, INFUSING AT 20 ML/HR WITH 30 ML FLUSHES Q4 HR. PT CONTINENT. NS TKO INFUSING THROUGH RIGHT PIV.
[2023-06-21] VITALS (84 sets, daily range): BP systolic 97–156; BP diastolic 60–132
[2023-06-21 03:34] LABS: BASOPHILS ABSOLUTE AUTO 0.01 K/mm3 (0.00-0.23); BASOPHILS PERCENT AUTO 0 % (0-2); EOSINOPHILS PERCENT AUTO 0 % (0-6); IMMATURE GRAN ABSOLUTE AUTO 0.06 K/mm3 (0.00-0.10); IMMATURE GRAN PERCENT AUTO 1 % (0-1); LYMPHOCYTES ABSOLUTE AUTO 0.57 K/mm3 (0.84-5.20); LYMPHOCYTES PERCENT AUTO 5 % (21-46); MONOCYTES ABSOLUTE AUTO 0.75 K/mm3 (0.16-1.47); MONOCYTES PERCENT AUTO 6 % (4-13); Mean Corpuscular HGB 32.4 pg (26.0-34.0); Mean Corpuscular HGB Conc 33.3 g/dL (31.5-36.5); Mean Corpuscular Volume 97 fL (80-100); Mean Platelet Volume 10.4 fL (9.1-12.4); NEUTROPHILS ABSOLUTE AUTO 10.77 K/mm3 (1.96-9.15); NEUTROPHILS PERCENT AUTO 89 % (41-73); Platelet Count 200 K/mm3 (150-400); RDW Coefficient Variation 12.9 % (11.7-14.2); White Blood Cell Count 12.16 K/mm3 (4.00-11.30)
[2023-06-21 03:49] LABS: International Normalized Ratio 2.2; Prothrombin Time Results 22.1 Sec (9.7-11.5)
[2023-06-21 03:57] LABS: Albumin, Blood 2.4 g/dL (3.4-5.0); Albumin/Globulin Ratio 0.5 (0.8-1.8); Bilirubin, Total 0.7 mg/dL (0.1-1.0); Calcium, Blood 9.3 mg/dL (8.5-10.1); Globulin, Blood 4.5 g/dL (2.2-4.0); Potassium, Blood 4.3 mmol/L (3.5-5.5); Total Protein, Blood 6.9 g/dL (6.4-8.2)
--- NOTE | 2023-06-21 06:28 | NUR ---
SHIFT SUMMARY PT REMAINS A/O X4. PT HAD NO ACUTE CHANGES THIS SHIFT AND SLEPT THROUGHOUT THE SHIFT. PT REMAINS ON CPAP, TOLERATING WELL. 12/100% , O2 SATS > 92%. PT WILL DESAT WHEN MOVING IN THE BED BUT RECOVERS SLOWLY. CARDIAC MONITORING REFLECTS AFIB. HR 110s-130s. SBP 120s. PT REMAINS CONTINENT, INDEPENDENT WITH THE URINAL. NS TKO INFUSING THROUGH RIGHT PIV. WILL CONTINUE TO MONITOR UNTIL CARE IS TRANSITIONED TO DAY SHIFT.
--- NOTE | 2023-06-21 09:50 | NUR ---
CARE OF PT ASSUMED AT 0700. PT AWAKE IN BED W CPAP 12/100% FIO2. RATE 30'S. SATS >90%. PT ORIENTED X3, DENIES C/O PAIN OR WORSENING SOB. TUBE FEEDS INFUSING THROUGH DOBHOFF. PT IN AFIB W RVR, RATE INITIALLY 110-130'S. AROUND 0900 RATE INCREASED UP INTO 160'S. BP STABLE. DR LI CALLED AND NOTIFIED. TOPROL XL CHANGED TO LOPRESSOR 25MG Q6 PT UNABLE TO SAFELY TAKE PO AT THIS TIME. RT HAD PLACED PT ON AIRVO THIS AM FOR BREAK AT 60L/100%. PT DESATURATED INTO LOW 60% WITH 2MIN, AND TOOK OVER 5MIN TO RECOVER SATURATIONS. ORAL CARE PROVIDED. PT'S AT BEDSIDE. SEVERAL MEDS INCLUDING LOPRESSOR, AND DIG GIVEN VIA TUBE; HR RATE IMPROVING, NOW 120-130'S. BP REMAINS STABLE.
--- NOTE | 2023-06-21 11:56 | NUR ---
PT'S RESP RATE 30-40'S. HR HIGH 170, AFIB RVR. SATS LOW 82%. PT APPEARS CALM BUT C/O CHEST DISCOMFORT, WORSE W HIGH HR. PT STATES HE IS ANXIOUS AND UNCOMFORTABLE. DR LI NOTIFED. LOPRESSOR 2.5MG IV GIVEN PER DR LI. PRECEDEX TO BE STARTED.
--- NOTE | 2023-06-21 12:18 | NUR ---
SATS 82%. PRECEDEX WAS STARTED AT 0.2MCG. PT AWAKE, APPEARS CALM W LABORED BREATHING. RESP RATE 30'S W TV AROUND 1000. HR 150'S. BP STABLE. RT CALLED TO BEDSIDE. PRECEDEX INCREASED TO 0.4MCG.
--- NOTE | 2023-06-21 12:39 | NUR ---
SATS CONTINUE TO RUN IN MID 80'S. HR BETWEEN 130-165. DR LI CALLED AND UPDATED. 2ND DOSE OF LOPRESSOR 2.5MG GIVEN IV PER DR LI.
--- NOTE | 2023-06-21 12:59 | NUR ---
PT STATES HE FEELS MORE COMFORTABLE W PRECEDEX GTT. HR SLIGHTLY IMPROVED. PT REMAINS HYPOXIC W SATS LOW TO MID 80'S NOW. PT'S AT BEDSIDE, UPDATED.
--- NOTE | 2023-06-21 13:14 | NUR ---
DR. LI AT BEDSIDE TO EVALUATE PT. NEW ORDERS RECEIVED FOR IV LOPRESSOR.
--- NOTE | 2023-06-21 14:57 | NUR ---
PT'S SATS DROPPED INTO LOW 70'S WHILE PT USED URINAL, PT DID NOT MOVE IN BED MUCH TO USE URINAL. PT RECOVERED TO MID 80'S AFTER 10MIN. DR LI AWARE.
[2023-06-21 15:47] LABS: PCO2 Arterial 43.8 mmHg (35-45); PO2 Arterial 49.2 mmHg (80-100); pH Blood Arterial 7.47 (7.35-7.45)
--- NOTE | 2023-06-21 15:51 | NUR ---
DR LI CALLED AT [address] LI AT BEDSIDE SHORTLY AFTER. STAT CHEST XRAY AND ABG ORDERED AND COMPLETED. PLANS TO INTUBATE PATIENT AFTER FAMILY ARRIVES. CRITICAL PO2 GIVEN TO DR LI.
--- NOTE | 2023-06-21 16:33 | NUR ---
Spoke with Dr Arceo, Primary RN Milly and discussed case. Plan for Pt to be intubated. Offered brief supportive visit to Pt and family. Family appears to be focused on Pt and not very engaged at this time. Ended visit to allow family to visit with Pt before intubation. Palliative Care will remain available
[2023-06-21 17:11] LABS: ANA DIRECT Negative (Negative); ANTI-DNA (DS) AB QN <1 IU/mL (0-9); RNP ANTIBODIES 0.4 AI (0.0-0.9); SJOGREN'S ANTI-SS-A <0.2 AI (0.0-0.9); SJOGREN'S ANTI-SS-B <0.2 AI (0.0-0.9); SMITH ANTIBODIES <0.2 AI (0.0-0.9)
--- NOTE | 2023-06-21 17:12 | NUR ---
PICC PLACVED TO CHASITY W/O DIFFICULTY. FAMILY AT BEDSIDE, DR LI IS CONSULTED W FAMILY AND PT FOR POSSIBLE INTUBATION W PARALYTIC, POSSIBLE PRONING. SATS NOW 70'S. PT ANXIOUS. PRECEDEX AT 0.4MCG, PT AWAKE, ALERT, AND LISTENING TO CONVERSATION. CPAP INCREASED TO [address] LI.
--- NOTE | 2023-06-21 17:43 | NUR ---
Intubation: 1740: Dr. Arceo, RT and RNs at bedside prepping for intubation. 1744: Pt changed from CPAP to BiPAP, BUR 25, 24/18 and 100% FiO2. SPO2 increased from 79% to 82%. 174: 50 mg propofol IV push 174: Intubation by Dr. Arceo with 8.0 ET tube, 28 cm at teeth, + bilateral breath sounds, + ETCO2 color change 174: 50 mg propofol IV push 174: 50 mg rocuronium push 175: ET tube repositioned to 26 cm at teeth 175: Sats improving. Manual bagging. BIS monitoring initiated. 1754: propofol started at 30 mcg/kg/min. Connected to vent with settings AC/PC rate 28, inspiratory pressure 20, PEEP 10, Fio2 100% 1756: Propofol increased to 50 mcg/kg/min per Dr. Arceo r/t BIS 72 1801: 2mg of Versed per Dr. Arceo. BIS at 65. 1802: Nimbex gtt started at 2 mcg/kg/min. BIS at 50.
[2023-06-21 18:25] LABS: PCO2 Arterial 60.1 mmHg (35-45); pH Blood Arterial 7.33 (7.35-7.45)
[2023-06-21 18:41] LABS: Source, Urine Foley catheter
--- NOTE | 2023-06-21 18:41 | NUR ---
HR INCREASED, 120-160'S, SATS STRATING TO DROP TO 80%. DR LI AT BEDSIDE. AMIO GTT W BOLUS ORDERED. DIG LEVEL ORDERED. DR LI CHANGED RATE TO 32, T1 TO .9. PREPARING TO PRONE PT NOW PER DR LI.
--- NOTE | 2023-06-21 18:51 | NUR ---
PT PRONED PER DR LI AT 1848 W RT AND 4 RN ASSIST. AMIO GTT STARTED W BOLUS
[2023-06-21 19:02] LABS: Bilirubin, Urine Neg (Neg); Blood, Urine Neg (Neg); Color, Urine Yellow (P-Yellow); Glucose Qualitative, Urine 4+ (Neg); Ketones, Urine Neg (Neg); Leukocyte Esterase, Urine Neg (Neg); Nitrite, Urine Neg (Neg); Protein, Urine 1+ (Neg); Urobilinogen, Urine NORM (Normal)
[2023-06-21 19:29] LABS: Appearance, Urine Hazy (Clear); Red Blood Cells, Urine 0-2 /hpf (0-2); Triple Phosphate Crystals Few /hpf; White Blood Cells, Urine 0-2 /hpf (0-5)
[2023-06-21 19:30] LABS: Bacteria Rare /hpf; Squamous Epithelial Cells Not Seen /hpf (Few)
--- NOTE | 2023-06-21 23:06 | NUR ---
ASSUMPTION OF CARE CARE WAS ASSUMED OF PT AT 1900, REPORT GIVEN BY MIKAL FRANCOIS. PT INTUBATED, SEDATED AND PARALYZED. PROPOFOL, PRECEDEX, AND NIMBEX INFUSING, SEE FLOW-SHEET FOR TITRATIONS. TOF 0, TITRATING NIMBEX DOWN. TITRATING SEDATION FOR BIS GOAL OF 40. VENT SETTINGS AC/PC RATE 32, Pi 20, PEEP 10, FiO2 100% AT START OF SHIFT. O2 SATS BETWEEN 80-84%. CARDIAC MONITORING REFLECTS AFIB WITH HR 110s-120s. SBP 120s. AMIODARONE GTT INFUSING, SEE FLOW-SHEET. PT PRONED AT START OF SHIFT, PLAN TO KEEP PT PRONED FOR 16 HRS. REPOSITIONING PT Q4HR D/T PT DESATTING EASILY WITH SLOW RECOVERY. MEPOLEX APPLIED OVER BONY PROMINENCES. KRISHNAN PATENT AND DRAINING TO GRAVITY.
--- NOTE | 2023-06-21 23:24 | NUR ---
CALL TO DR. LI AT 2020 WITH DIGOXIN LAB RESULTS AND UPDATED ON PT'S STATUS. NOTIFIED HIM OF PT'S SLIGHTLY UNEQUAL PUPILS AND O2 SATS.
[2023-06-22] VITALS (72 sets, daily range): BP systolic 88–141; BP diastolic 53–88
--- NOTE | 2023-06-22 01:28 | NUR ---
DR. LI CALLED REGARDING PT'S STATUS AND O2 SATS DROPPING. ABG DRAWN BY RT, VENT SETTINGS ADJUSTED. CALLED (CARMELITA) AND GAVE UPDATE REGARDING PT'S STATUS.
[2023-06-22 01:35] LABS: PO2 Arterial 61.2 mmHg (80-100)
[2023-06-22 01:36] LABS: pH Blood Arterial 7.04 (7.35-7.45)
--- NOTE | 2023-06-22 01:47 | NUR ---
DR. LI CALLED, READ ABG RESULTS. GIVEN RT ORDERS FOR VENT SETTINGS ADJUSTMENTS.
--- NOTE | 2023-06-22 02:22 | NUR ---
(CARMELITA) ARRIVED TO UNIT AROUND 0200. SPOKE WITH REGARDING PT'S STATUS AND INCREASING O2 NEEDS. MADE DECISION TO CHANGE PT'S CODE STATUS TO DNR. ORDER CHANGED. AT BEDSIDE.
[2023-06-22 03:49] LABS: BASOPHILS ABSOLUTE AUTO 0.09 K/mm3 (0.00-0.23); BASOPHILS PERCENT AUTO 0 % (0-2); EOSINOPHILS ABSOLUTE AUTO 0.01 K/mm3 (0.00-0.68); EOSINOPHILS PERCENT AUTO 0 % (0-6); Hematocrit 40.6 % (37.0-53.0); Hemoglobin 12.6 g/dL (13.5-17.5); IMMATURE GRAN ABSOLUTE AUTO 1.16 K/mm3 (0.00-0.10); IMMATURE GRAN PERCENT AUTO 4 % (0-1); LYMPHOCYTES ABSOLUTE AUTO 1.07 K/mm3 (0.84-5.20); LYMPHOCYTES PERCENT AUTO 4 % (21-46); MONOCYTES ABSOLUTE AUTO 1.94 K/mm3 (0.16-1.47); MONOCYTES PERCENT AUTO 6 % (4-13); Mean Corpuscular HGB 32.5 pg (26.0-34.0); Mean Platelet Volume 10.2 fL (9.1-12.4); NEUTROPHILS ABSOLUTE AUTO 26.57 K/mm3 (1.96-9.15); NEUTROPHILS PERCENT AUTO 86 % (41-73); Platelet Count 243 K/mm3 (150-400); RDW Coefficient Variation 13.2 % (11.7-14.2); RDW Standard Deviation 50.3 fL (35.1-46.3); Red Blood Cell Count 3.88 M/mm3 (4.30-5.90); White Blood Cell Count 30.84 K/mm3 (4.00-11.30)
[2023-06-22 04:10] LABS: International Normalized Ratio 1.51; Prothrombin Time Results 15.5 Sec (9.7-11.5)
[2023-06-22 04:16] LABS: Magnesium, Blood 3.2 mg/dL (1.6-2.4)
[2023-06-22 04:21] LABS: Albumin, Blood 2.7 g/dL (3.4-5.0); Albumin/Globulin Ratio 0.6 (0.8-1.8); Bilirubin, Total 0.7 mg/dL (0.1-1.0); Bun/Creatinine Ratio 44.2 (12.0-20.0); Calcium, Blood 9.1 mg/dL (8.5-10.1); Creatinine, Blood 1.29 mg/dL (0.60-1.20); Globulin, Blood 4.7 g/dL (2.2-4.0); Potassium, Blood 5.9 mmol/L (3.5-5.5); Total Protein, Blood 7.4 g/dL (6.4-8.2)
[2023-06-22 04:59] LABS: Mean Corpuscular Volume 105 fL (80-100)
--- NOTE | 2023-06-22 06:39 | NUR ---
SHIFT SUMMARY PT REMAINS INTUBATED, SEDATED AND PARALYZED. NIMBEX INFUSING, TOF REMAINS AT 0/4. PROPOFOL AND PRECEDEX INFUSING FOR SEDATION GOAL OF BIS 40. SEE FLOW-SHEET FOR TITRATIONS. PT'S O2 REQUIREMENTS INCREASED THROUGHOUT THE NIGHT, SEE PREVIOUS NURSE NOTES. VENT SETTINGS ADJUSTED MULTIPLE TIMES BY RT. CURRENT VENT SETTINGS AC/PC RATE 32, Pi 24, PEEP 10, FiO2 100%. O2 SATS 60-70%. CARDIAC MONTIORING REFLECTS AFIB, HR 90s-100s. SBP 110s. AMIODARONE INFUSING. PT REMAINS PRONED AT THIS TIME. KRISHNAN PATENT DRAINING TO GRAVITY. TF INFUSING. AT BEDSIDE.
--- NOTE | 2023-06-22 08:27 | NUR ---
ASSUMED CARE ASSUMED CARE OF PT AT 0700. REPORT RECEIVED FROM AYUSH. PT IS INTUBATED, SEDATED, PRONED AT CHEMICALLY PARALYZED AT THIS TIME. BIS READING 38. PT COMPLIANT WITH VENTILATOR, SETTINGS AC/PC RATE 32, INSP PRESSURE 24, PEEP 10, FIO2 100%. PT SPO2 UPON ASSUMING CARE 67%. SPO2 CURRENTLY 83% AFTER HEAD TURN. CUFF LEAK NOTED WITH HEAD TURN, RT ADDED PRESSURE TO BALLOON. VSS PER MONITOR. RHYTHM AFIB WITH HR 90-100, SBP 140. LUNG SOUNDS CLEAR T/O. NO SECRETIONS PER ET TUBE. DOBHOFF IN PLACE WITH TF PIVOT AT 40ML/HR. NO S/SX OF INTOLERANCE. PT HAS PICC TO CHASITY WITH NIMBEX 1 MCG/KG/MIN, PRECEDEX 0.4 MCG/KG/HR, PROPOFOL 45 MCG/KG/MIN, AMIODARONE 0.5 MG/MIN. PT IS NOTED TO HAVE PURPLE FACE AND EARS, EDEMA AROUND EYES AND MOUTH. PT'S PRESENT AT BEDSIDE.
--- NOTE | 2023-06-22 09:00 | NUR ---
HANDOFF REPORT GIVEN TO ALESSANDRO CHADWICK TO ASSUME CARE OF PT.
--- NOTE | 2023-06-22 09:11 | NUR ---
ASSUMED CARE I ASSUMED CARE OF THIS PATIENT AT 0845 FROM ALESSANDRO LYNCH. BEDSIDE REPORT COMPLETEFD WITH AT BEDSIDE. PATIENT PRONED AND INTUBATED ON AC/PC RATE 32, 24/10, FIO2 100% WITH SPO2 83-84%. PATIENT IS BREATHING WITH VENT @ 32 BREATHS/MIN. SEDATED WITH PROPOFOL @ 45MCG/KG/MIN, PRECEDEX @ 0.4 MCG/KG/HR. PARALYZED FOR VENT COMPLIANCE WITH NIMBEX @ 1 MCG/KG/MIN-BIS CURRENTLY 41. PIVOT 1.F INF VIA DOBHOFF @ 40ML/HR WITH 30ML Q4HR WATER FLUSHES. KRISHNAN PATIENT AND DRAINING DARK YELLOW URINE TO GRAVITY.
[2023-06-22 11:01] LABS: PCO2 Venous 76.5 mmHg (38-42)
[2023-06-22 11:02] LABS: pH Blood Venous 7.21 (7.34-7.37)
--- NOTE | 2023-06-22 12:15 | NUR ---
SUPINATED PATIENT SUPINATED WITH THE ASSISTANCE OF DR. MCCARTHY. PATIENT TOLERATED PROCEDURE WELL. SPO2 89% WITH VENT AT PRESSURE CONTROL 24/12 RATE 32 FIO2 100%. AT BEDSIDE PRIOR TO AND FOLLOWING PROCEDURE.
--- NOTE | 2023-06-22 13:00 | NUR ---
JEVITY 1.5 STARTED AT GR OF 70ML/HR VIA DOBHOFF
--- NOTE | 2023-06-22 13:44 | NUR ---
Spiritual Care Visit. Pt. is intubated and not responsive. Spouse was present. My objective was to initiate a theraputic connection and to establish rapport. Asked guided questions and facilitated a life review. Spouse displayed evidence of steady acceptance and verbalized that she has family support. Spouse verbalized that the Pt. comes from a [place] background, but she doesn't. With my initial objective met I ecused myself. Spouse verbalized gratitude for the spiritual care visit and support. Spouse welcomed this powerhouse mechanic helper to return.
[2023-06-22 14:46] LABS: Bun/Creatinine Ratio 43.3 (12.0-20.0); Calcium, Blood 8.7 mg/dL (8.5-10.1); Creatinine, Blood 1.41 mg/dL (0.60-1.20); Potassium, Blood 5.6 mmol/L (3.5-5.5)
--- NOTE | 2023-06-22 18:15 | NUR ---
SHIFT SUMMARY PATIENT PRONED AGAIN AT APPROXIMATELY 1745 WITH THE ASSIST OF RT. PATIENT TOLERATED PROCEDURE WELL WITH SPO2 88-90%. VENT SETTINGS REMAIN PRESSURE CONTROL 24/12 FIO2 100% AND BACKUP RATE 32 WITH PATIENT BREATHING 32. PATIENT REMAINS ON NIMBEX @ 1 MCG/KG/HR, PRECEDEX @ 0.4 MCG/KG/HR, PROPOFOL @ 50 MCG/KG/MIN, AND NS TKO. IV MAINTENANCE FLUIDS DC'D THIS SHIFT. TF CHANGED TO VHP @ GR OF 20ML/HR WITH 30ML Q4H WATER FLUSHES. KRISHNAN DRAINED OVER 1L OUT. NO BM. PATIENT AT BEDSIDE T/O SHIFT. NO OTHER CHANGES DURING SHIFT.
--- NOTE | 2023-06-22 19:15 | NUR ---
ASSUMPTION OF CARE: RECEIVED REPORT FROM NETTA Hamilton RN. PT INTUBATED, SEDATED AND PARALYZED FOR VENT COMPLIANCE. PT CURRENTLY PRONE, WITH PLANS TO SUPINE TOMORROW AFTERNOON. CURRENT VENT SETTINGS, AC/PC 32/24/12/100%. SPO2 88-90%. LUNG SOUNDS CLEAR. SCANT SECRETIONS FROM ET TUBE. PROPOFOL INFUSING AT 50 MCG/MIN, NIMBEX AT 1.5 MCG/KG/MIN, PRECEDEX AT 0.04 MCG/KG/HR. TOF SCORE 4/4, WHILE NIMBEX AT 1 MCG/KG/MIN, TITRATED UP TO 1.5. BIS AT 38-40. PT COMPLIANT WITH VENT AT THIS TIME. CARDIAC MONITORING IN PLACE, SHOWS AFIB WITH RATE 90'S-100'S. SBP 100'S. DOBHOFF IN PLACE, WITH CONTINUOUS TUBE FEED AT 20 ML/HR. NO BM YET. KRISHNAN IN PLACE, FOR CRITICAL I&O, PATENT AND DRAINING TO GRAVITY. PICC LINE TO CHASITY, PATENT AND INFUSING.
[2023-06-23] VITALS (92 sets, daily range): BP systolic 88–149; BP diastolic 54–117
--- NOTE | 2023-06-23 01:54 | NUR ---
DOBHOFF: KANGAROO PUMP ALARMED CONTINUALLY T/O THE LAST FEW HOURS OF THE SHIFT FOR FLOW ERROR. FLUSHED DOBHOFF WITH WARM WATER AND PEPSI. FLUSHES GREAT WITH NO ISSUES. ATTEMPTED TO TROUBLESHOOT THE KANGAROO PUMP, LINE FLUSHES GREAT. REATTACHED AND CONTINUED TO GET FLOW ERROR MESSAGE. TURNED TUBE FEED OFF FOR NOW AND FLUSHED DOBHOFF AGAIN.
[2023-06-23 03:59] LABS: International Normalized Ratio 1.47; Prothrombin Time Results 15.1 Sec (9.7-11.5)
[2023-06-23 04:27] LABS: Digoxin (Lanoxin) 0.96 ug/mL (0.80-2.00); Magnesium, Blood 3.3 mg/dL (1.6-2.4)
[2023-06-23 04:43] LABS: Alanine Aminotransfer (ALT/SGP 90 U/L (12-78); Albumin, Blood 2.6 g/dL (3.4-5.0); Albumin/Globulin Ratio 0.6 (0.8-1.8); Alk Phos 214 U/L (50-136); Anion Gap 4 mmol/L (6-16); Aspartate Aminotrans (AST/SGOT 47 U/L (12-37); Bilirubin, Total 0.7 mg/dL (0.1-1.0); Blood Urea Nitrogen 67 mg/dL (8-24); Bun/Creatinine Ratio 50.8 (12.0-20.0); CO2, Blood 26 mmol/L (21-32); Calcium, Blood 8.5 mg/dL (8.5-10.1); Chloride, Blood 106 mmol/L (98-108); Creatinine, Blood 1.32 mg/dL (0.60-1.20); Globulin, Blood 4.5 g/dL (2.2-4.0); Glomerular Filtration Rate 58 (60-); Glucose, Blood 324 mg/dL (70-99); Potassium, Blood 5.7 mmol/L (3.5-5.5); Sodium, Blood 136 mmol/L (136-145); Total Protein, Blood 7.1 g/dL (6.4-8.2)
[2023-06-23 04:44] LABS: Phosphorus, Blood 5.8 mg/dL (2.5-4.9)
[2023-06-23 04:56] LABS: BASOPHILS ABSOLUTE AUTO 0.04 K/mm3 (0.00-0.23); BASOPHILS PERCENT AUTO 0 % (0-2); EOSINOPHILS PERCENT AUTO 0 % (0-6); Hematocrit 40.3 % (37.0-53.0); Hemoglobin 12.6 g/dL (13.5-17.5); IMMATURE GRAN ABSOLUTE AUTO 0.68 K/mm3 (0.00-0.10); IMMATURE GRAN PERCENT AUTO 4 % (0-1); LYMPHOCYTES ABSOLUTE AUTO 0.53 K/mm3 (0.84-5.20); LYMPHOCYTES PERCENT AUTO 3 % (21-46); MONOCYTES ABSOLUTE AUTO 1.22 K/mm3 (0.16-1.47); MONOCYTES PERCENT AUTO 7 % (4-13); Mean Corpuscular HGB 32.2 pg (26.0-34.0); Mean Corpuscular HGB Conc 31.3 g/dL (31.5-36.5); Mean Corpuscular Volume 103 fL (80-100); Mean Platelet Volume 10.9 fL (9.1-12.4); NEUTROPHILS PERCENT AUTO 86 % (41-73); Platelet Count 118 K/mm3 (150-400); RDW Coefficient Variation 13.2 % (11.7-14.2); RDW Standard Deviation 51.2 fL (35.1-46.3); Red Blood Cell Count 3.91 M/mm3 (4.30-5.90); White Blood Cell Count 17.17 K/mm3 (4.00-11.30)
--- NOTE | 2023-06-23 06:31 | NUR ---
SHIFT SUMMARY: PT CONTINUES TO REMAIN INTUBATED, SEDATED AND PARALYZED FOR VENT COMPLIANCE. VENT SETTINGS AC/PC 32/24/12/100%. SPO2 MID 80'S. NIMBEX AT 1.25 MCG/KG/MIN. TOF 2/4. PROPOFOL AT 50 MCG/MIN WITH BIS AT 30-40. PRECEDEX AT 0.4 MCG/KG/HR. AMIO OFF AT MIDNIGHT. PUPILS REACTIVE. SCLERAL EDEMA NOTED BILATERALLY. PT CONTINUES TO REMAIN PRONE T/O THE SHIFT. DOBHOFF IN PLACE, CLAMPED AT THIS TIME. CARDIAC MONITORING SHOWS AFIB WITH RATE 90'S-120'S. SBP 110'S. KRISHNAN IN PLACE FOR CRITICAL I&O, PATENT AND DRAINING TO GRAVITY. NO BM THIS SHIFT. BLOOD SUGARS ELEVATED, ORDER FROM DR. MCCARTHY FOR HIGH SLIDING SCALE AND NONI FOR COVERAGE WITH Q6 BLOOD SUGAR CHECKS.
--- NOTE | 2023-06-23 07:00 | NUR ---
ASSUMPTION OF CARE: ASSUMED CARE OF PATIENT WITH MENDY MATT. PATIENT IN THE PRONE POSITION. PATIENT COMPLIANT WITH THE VENT. RESPIRATIONS SET AT 32 AND ACTUAL RR IS 32. VENT SETTINGS: AC/PC: 32/24/12/100%. BIS LEVEL IN THE MID 30S. SP02 AT 85-86%. PROPOFOL GTT AT 50 MCG/KG/MIN, PRECEDEX AT 0.4MCG/KG/MIN, AND NIMBEX AT 1.25 MCG/KG/MIN. TUBE FEED CONTINUES TO BE ON HOLD RELATED TO POSITIONING OF PATIENT. DR. GERARD AT BEDSIDE.
[2023-06-23 10:37] LABS: PCO2 Arterial 97.2 mmHg (35-45); PO2 Arterial 57.6 mmHg (80-100); pH Blood Arterial 7.14 (7.35-7.45)
[2023-06-23 10:37] LABS: Albumin, Blood 2.7 g/dL (3.4-5.0); Anion Gap 1 mmol/L (6-16); Blood Urea Nitrogen 69 mg/dL (8-24); Bun/Creatinine Ratio 52.3 (12.0-20.0); CO2, Blood 32 mmol/L (21-32); Calcium, Blood 8.7 mg/dL (8.5-10.1); Chloride, Blood 106 mmol/L (98-108); Creatinine, Blood 1.32 mg/dL (0.60-1.20); Glomerular Filtration Rate 58 (60-); Glucose, Blood 268 mg/dL (70-99); Phosphorus, Blood 5.7 mg/dL (2.5-4.9); Potassium, Blood 5.6 mmol/L (3.5-5.5); Sodium, Blood 139 mmol/L (136-145)
--- NOTE | 2023-06-23 19:15 | NUR ---
ASSUMPTION OF CARE: RECEIVED REPORT FROM MIRELA RN AND MENDY RN. PT INTUBATED, SEDATED AND PARALYZED FOR VENTILATOR COMPLIANCE. VENT SETTINGS AC/PC 32/23/14/100%. SPO2 86-88%. PROPOFOL INFUSING AT 40 MCG/KG/MIN WITH BIS READING IN THE 40'S. NIMBEX AT 1.25 MCG/KG/MIN WITH TOF SCORE 4/4. PT COMPLIANT WITH VENT AT THIS TIME. SENIOR ENGINEER SHOWS AFIB WITH RATE IN THE 90'S. SBP 120'S. DOBHOFF IN PLACE WITH TUBE FEED INFUSING AT 20ML/HR. KRISHNAN IN PLACE FOR CRITICAL I&O, PATENT AND DRAINING TO GRAVITY. PICC LINE IN CHASITY, PATENT AND INFUSING. PT SUPINATED AT CHANGE OF SHIFT WITH DR. MCCARTHY PRESENT. , CARMELITA AT THE BEDSIDE UPDATED TO PLAN OF CARE BEFORE GOING HOME.
--- NOTE | 2023-06-23 19:16 | NUR ---
SHIFT SUMMARY: NEURO: PATIENT REMAINED SEDATED AND PARALYZED DURING THE SHIFT. DECREASED PROPOFOL TO 40 MCG/KG/MIN TO ACHIEVE BIS SCORES IN THE HIGH 30S TO 40S. CARDIAC: PATIENT RESPONDED WELL TO SCHEDULED CARDIAC MEDICATIONS. FOR MUCH OF THE SHIFT, HR IN THE 90S-LOW 10S. AT TIMES, HR IN THE 100-110S. SBPS IN THE 110S-140S. FACIAL EDEMA IMPROVED WHEN REPOSITIONED SUPINE. PULSES PALPABLE IN ALL 4 EXTREMITIES. RESPIRATORY: PATIENT REMAINS INTUBATED. VENT SETTINGS AC/PC 32/24/14/100%. AT THE END OF SHIFT, ATTEMPTED PRONING, HOWEVER SPO2 DECREASED TO 81%. REPOSITIONED TO SUPINE. DR. MCCARTHY AT BEDSIDE. PEEP INCREASED TO 14 FROM 12. DURING THE SHIFT, SPO2 BETWEEN 86-88%. GI: TUBE FEED STARTED AGAIN ONCE PATIENT SUPINE. DOBHOFF FLUSHES EASILY. ABLE TO CONTINUE TUBE FEEDINGS DURING THE AFTERNOON. NO BOWEL MOVEMENT DURING DAY SHIFT. : KRISHNAN IN PLACE AND DRAINING FREELY. URINE IS YELLOW WITH SEDIMENT. SOME PINK NOTED IN THE AM. PSYCHSOCIAL: PATIENT'S AT BEDSIDE TODAY. SHE IS APPRECIATIVE OF STAFF AND RECEPTIVE TO INFORMATION. SHE IS SUPPORTIVE OF THE PATIENT.
[2023-06-24] VITALS (60 sets, daily range): BP systolic 81–122; BP diastolic 44–75
--- NOTE | 2023-06-24 00:12 | NUR ---
UPDATE: ET TUBE SECUREMENT DEVICE CHANGED BY RT FROM SOFT TO ANCHOR FAST. SINCE THEN PT HAS DESATTED DOWN TO LOW 80'S AND CONTINUES TO REMAIN AT SPO2 82. CALL PLACED TO [facility] FOR CHEST X-RAY TO VERIFY TUBE PLACEMENT. DR. DYE AT THE BEDSIDE TO VERIFY ET TUBE. DR. DYE VERIFIED THAT IT WAS IN THE CORRECT PLACE AND RECOMMENDED A CALL TO DR. MCCARTHY. REPOSITIONED PT AND SUCTIONED WITH NO IMPROVEMENT. DR. MCCARTHY CALLED AND UPDATED ON PT CONDITION AND STATED SHE WILL BE IN TO SEE THE PT.
--- NOTE | 2023-06-24 00:30 | NUR ---
UPDATE: DR. MCCARTHY AT THE BEDSIDE TO ASSESS PT. INCREASED PEEP TO 15. NEW ORDERS GIVEN FOR ABG AND ANOTHER DOSE OF LASIX. ABG DRAWN BY RT AND RESULTS GIVEN TO DR. MCCARTHY.
[2023-06-24 02:38] LABS: PCO2 Arterial 93.5 mmHg (35-45); pH Blood Arterial 7.14 (7.35-7.45)
[2023-06-24 04:48] LABS: BASOPHILS ABSOLUTE AUTO 0.03 K/mm3 (0.00-0.23); BASOPHILS PERCENT AUTO 0 % (0-2); EOSINOPHILS PERCENT AUTO 0 % (0-6); Hematocrit 36.3 % (37.0-53.0); Hemoglobin 11.7 g/dL (13.5-17.5); IMMATURE GRAN ABSOLUTE AUTO 0.56 K/mm3 (0.00-0.10); IMMATURE GRAN PERCENT AUTO 3 % (0-1); LYMPHOCYTES ABSOLUTE AUTO 0.41 K/mm3 (0.84-5.20); LYMPHOCYTES PERCENT AUTO 3 % (21-46); MONOCYTES ABSOLUTE AUTO 1.18 K/mm3 (0.16-1.47); MONOCYTES PERCENT AUTO 7 % (4-13); Mean Corpuscular HGB 33.3 pg (26.0-34.0); Mean Corpuscular HGB Conc 32.2 g/dL (31.5-36.5); Mean Corpuscular Volume 103 fL (80-100); Mean Platelet Volume 11.1 fL (9.1-12.4); NEUTROPHILS ABSOLUTE AUTO 14.45 K/mm3 (1.96-9.15); NEUTROPHILS PERCENT AUTO 87 % (41-73); NRBC ABSOLUTE 0.06 K/mm3 (0.00-0.02); NRBC Auto 0.4 /100 WBC (0.0-0.2); Platelet Count 110 K/mm3 (150-400); RDW Coefficient Variation 13.2 % (11.7-14.2); RDW Standard Deviation 50.6 fL (35.1-46.3); Red Blood Cell Count 3.51 M/mm3 (4.30-5.90); White Blood Cell Count 16.63 K/mm3 (4.00-11.30)
[2023-06-24 05:04] LABS: International Normalized Ratio 1.72; Prothrombin Time Results 17.5 Sec (9.7-11.5)
[2023-06-24 05:10] LABS: Magnesium, Blood 3.6 mg/dL (1.6-2.4)
[2023-06-24 05:11] LABS: Bun/Creatinine Ratio 42.4 (12.0-20.0); Calcium, Blood 8.2 mg/dL (8.5-10.1); Creatinine, Blood 2.29 mg/dL (0.60-1.20); Potassium, Blood 5.7 mmol/L (3.5-5.5)
--- NOTE | 2023-06-24 06:24 | NUR ---
SHIFT SUMMARY: PT REMAINS INTUBATED, SEDATED AND PARALYZED. VENT SETTINGS 32/23/15/100%. SPO2 DECREASING T/O THE SHIFT WITH CURRENT READING IN THE HIGH 70'S. AWARE. PROPOFOL INFUSING AT 40 MCG/KG/MIN WITH BIS AT 40. NIMBEX AT 1.25 MCG/KG/MIN WITH TOF SCORE 4/4. PT COMPLIANT WITH THE VENTILATOR. PUPILS EQUAL AND REACTIVE. HIGH PRESSURE OPERATOR SHOWS AFIB WITH RATE 110'S. SBP 100'S. TUBE FEED INFUSING THROUGH DOBHOFF AT 20ML/HR. NO BM THIS SHIFT. KRISHNAN IN PLACE, IRRIGATED FOR DECREASING URINE OUTPUT PER DR. MCCARTHY. PATENT AND DRAINING TO GRAVITY. PICC TO CHASITY INFUSING AT THIS TIME. INCREASING EDEMA T/O NOTED.
--- NOTE | 2023-06-24 07:00 | NUR ---
ASSUMPTION OF CARE PT RECEIVING NIMBEX 1MCG/KG/MIN AND PROPOFOL 40MCG/KG/MIN. HE REMAINS INTUBATED WITH VENT SETTINGS AC/PC 32/15/100%. TV 400S. TOF 3/4. BIS SCORE 40S. DOBHOFF INFUSING VHP AT 20ML/HR. AFIB ON MONITOR WITH RATE IN 100S-110S. SBP 100.S KRISHNAN PATENT DRAINING CLOUDY YELLOW URINE TO GRAVITY. SEE SHIFT ASSESSMENT.
--- NOTE | 2023-06-24 10:34 | NUR ---
UPDATE SINCE AM SUSAN PT HAS HAD 100ML URINE OUTPUT. HE HAD ONE RUN OF 5 PVCS. SBP 90S, DBP 40S-50S. CORE TEMP 100.0. CARMELITA NOW AT BEDSIDE. UPDATED BY DR GERARD REGARDING PT CONDITION. OFFERED CARMELITA SUPPORT, SHE REPORTS SHE WILL CALL THEIR CHILDREN [place].
[2023-06-24 11:37] LABS: Albumin, Blood 2.4 g/dL (3.4-5.0); Anion Gap 3 mmol/L (6-16); Blood Urea Nitrogen 111 mg/dL (8-24); Bun/Creatinine Ratio 38.4 (12.0-20.0); CO2, Blood 31 mmol/L (21-32); Chloride, Blood 103 mmol/L (98-108); Creatinine, Blood 2.89 mg/dL (0.60-1.20); Glomerular Filtration Rate 23 (60-); Glucose, Blood 241 mg/dL (70-99); Phosphorus, Blood 6.6 mg/dL (2.5-4.9); Sodium, Blood 137 mmol/L (136-145)
--- NOTE | 2023-06-24 13:04 | NUR ---
FAMILY DISCUSSION SONS AT BEDSIDE WITH CARMELITA. DR MENDEZ AT BEDSIDE AND PROVIDED UPDATE ON PT CONDITION.
--- NOTE | 2023-06-24 14:09 | NUR ---
UPDATE CARMELITA AND SONS STATE THEY HAVE MADE THE DECISION TO TRANSITION THE PT TO COMFORT CARE TO THIS RN AND DR MENDEZ. COMFORT CARE PROCESS EXPLAINED TO FAMILY AND THEY VERBALIZE UNDERSTANDING. PER REQUEST, A PHONE CALL WILL BE MADE TO CARMELITA AFTER TIME OF . DR GERARD NOTIFIED. DARIO FROM PALLIATIVE CARE ASSISTING WITH COMFORT CARE PROCESS.
--- NOTE | 2023-06-24 14:18 | NUR ---
brief therputic visit with . She is calling children. they have decided to extubate and allow peacfull passing. they cannot be present. We will respect their family and process and provide suragacy and provde compassionate care. peace the this man and his family.
--- NOTE | 2023-06-24 16:29 | NUR ---
COMFORT CARE/ FAMILY REQUESTS PHONE CALL AFTER TIME OF . PT MEDICATED PER EMAR. PT EXTUBATED AT 1505 BY RT. TIME OF 1512. PROVIDERS NOTIFIED. CARMELITA NOTIFIED VIA TELEPHONE AT 1530. ALL BELONGINGS TAKEN HOME BY PREVIOUSLY. PT TO BE TRANSPORTED [facility].
[2023-06-25 12:07] LABS: ANTIMYELOPEROXIDASE (MPO) ABS <0.2 units (0.0-0.9); ANTIPROTEINASE 3 (PR-3) ABS <0.2 units (0.0-0.9); ATYPICAL PANCA <1:20 titer (Neg:<1:20); CYTOPLASMIC (C-ANCA) <1:20 titer (Neg:<1:20); PERINUCLEAR (P-ANCA) <1:20 titer (Neg:<1:20)
[2023-06-29 05:09] LABS: PCO2 Arterial > 104 mmHg (35-45)
== END 2023-06-24 15:10 | DRG 208 ==
LOC: ER 15:47 → ICUE 20:52 → PCU 20:52 → ICUE 21:00 → PCU 06-14 12:35 → ICUE 06-20 17:08
PROVIDERS: Emergency Medicine; Family Medicine; Internal Medicine; Internal Medicine Critical Care Medicine; Nurse Practitioner Acute Care; Physician Assistant; ADMIT Internal Medicine
PROC: 3E03329 Introduction of Other Anti-infective into Peripheral Vein, Percutaneous Approach (ICD-10-PCS; 2023-06-12)
PROC: 5A09457 Assistance with Respiratory Ventilation, 24-96 Consecutive Hours, Continuous Positive Airway Pressure (ICD-10-PCS; 2023-06-12)
PROC: 0DH67UZ Insertion of Feeding Device into Stomach, Via Natural or Artificial Opening (ICD-10-PCS; 2023-06-15)
PROC: 02HV33Z Insertion of Infusion Device into Superior Vena Cava, Percutaneous Approach (ICD-10-PCS; 2023-06-15)
PROC: 5A0935A Assistance with Respiratory Ventilation, Less than 24 Consecutive Hours, High Flow/Velocity Cannula (ICD-10-PCS; 2023-06-16)
PROC: 5A1945Z Respiratory Ventilation, 24-96 Consecutive Hours (ICD-10-PCS; principal; 2023-06-21)
PROC: 0BH17EZ Insertion of Endotracheal Airway into Trachea, Via Natural or Artificial Opening (ICD-10-PCS; 2023-06-21)
PROC: 4A133R1 Monitoring of Arterial Saturation, Peripheral, Percutaneous Approach (ICD-10-PCS; 2023-06-21)
DX: J96.01 Acute respiratory failure with hypoxia (principal); A41.9 Sepsis, unspecified organism; I50.31 Acute diastolic (congestive) heart failure; J18.9 Pneumonia, unspecified organism; I13.0 Hypertensive heart and chronic kidney disease with heart failure and stage 1 through stage 4 chronic kidney disease, or unspecified chronic kidney disease; N17.9 Acute kidney failure, unspecified; I24.89 Other forms of acute ischemic heart disease; Z66 Do not resuscitate; Z51.5 Encounter for palliative care; E87.5 Hyperkalemia; E78.00 Pure hypercholesterolemia, unspecified; N18.30 Chronic kidney disease, stage 3 unspecified; I48.0 Paroxysmal atrial fibrillation; J84.10 Pulmonary fibrosis, unspecified; J47.9 Bronchiectasis, uncomplicated; R77.8 Other specified abnormalities of plasma proteins; F41.9 Anxiety disorder, unspecified; Z79.01 Long term (current) use of anticoagulants; Z95.2 Presence of prosthetic heart valve; Z98.890 Other specified postprocedural states; Z11.52 Encounter for screening for COVID-19; Z79.899 Other long term (current) drug therapy
CPT/HCPCS: 0202U; 0241U; 31500; 36415; 36416; 36569; 36600; 51702; 71045; 71260; 80048; 80053; 80069; 80162; 81001; 82330; 82803; 82947; 83516; 83520; 83605; 83735; 83880; 84100; 84145; 84484; 85025; 85610; 85651; 86037; 86200; 86225; 86235; 86430; 87040; 87449; 93005; 93010; 93306; 94002; 94003; 94640; 94660; 94664; 94760; 94762; 96365; 96368; 96375; 99285-25; A9270; C1751; C9113; J0282; J0456; J0696; J1940; J2250; J2270; J2704; J2930; J3010; J7030; J7040; J7050; J7060; J7512; Q9967